=== PATIENT | female | born 1980 | race Two or more races ===

== ENCOUNTER 2020-01-01 08:25 | Outpatient (CLI) | payer OTHER | END 2020-01-01 11:38 | disposition home or self-care (01) | LOC: NUCLEAR 08:25 | PROVIDERS: ATTEND Internal Medicine Cardiovascular Disease | DX: I11.9 Hypertensive heart disease without heart failure (principal); I25.118 Atherosclerotic heart disease of native coronary artery with other forms of angina pectoris; E78.2 Mixed hyperlipidemia; I25.2 Old myocardial infarction | CPT/HCPCS: 78452; 93017; A9500 ==